=== PATIENT | male | born 1955 | race Caucasian/White ===

== ENCOUNTER 2018-01-08 10:36 | Emergency (ER) | payer OTHER ==
[~2018-01-08] VITALS: Ht 177.8 cm; Wt 81.6 kg
[2018-01-08 10:44] VITALS: BP 155/89
[2018-01-08] MEDS ORDERED: DIPHTH,PERTUSS(ACELL),TET TOX 0.5 ML DISP.SYRIN. VAX IM ONE (10:45)
[2018-01-08] MEDS ORDERED: IBUPROFEN 400 MG TABLET. PO ONE (11:00)
[2018-01-08] MEDS ORDERED: LIDOCAINE 1% Multi-Dose 20 ML VIAL. IJ ONE (11:00)
--- NOTE | 2018-01-08 11:21 | RAD ---
History: Laceration, injury today. Comparison: None. Findings: AP and lateral views of the right tibia and fibula, 4 images. Examination is not optimal to evaluate knee or ankle joints. No acute osseous abnormality is identified. No radiopaque foreign body is seen. Soft tissue defect is seen involving the anterior proximal lower leg, compatible with provided history of laceration. Ossific densities are seen adjacent to lateral malleolus, could be old avulsion fractures or accessory ossicles. Impression: 1. No acute osseous abnormality identified. 2. Laceration of anterior proximal lower leg. Electronically signed by: Goran Landeros MD (01/08/2018 11:18 AM) [place] [id number]
[2018-01-08] MEDS ORDERED: IBUP800T19 PO ×2 (11:39→11:40)
--- NOTE | 2018-01-08 11:40 | PHYS DOC ---
Past History Past Medical History: No Pertinent History Past Surgical History: No Surgical History Alcohol Use: None Drug Use: None Adult General Chief Complaint Chief Complaint: LACERATION/AVULSION HPI HPI Patient is a 62 year old male who presents with complaining of laceration of right lower extremity. Patient states he was at work and had a fall and injured right lower extremity with a laceration. Patient denies other injuries and focal neuro deficit. Patient is up-to-date with his tetanus immunization. Review of Systems Review of Systems Constitutional: Denies fever or chills [] Eyes: Denies change in visual acuity, redness, or eye pain [] HENT: Denies nasal congestion or sore throat [] Respiratory: Denies cough or shortness of breath [] Cardiovascular: No additional information not addressed in HPI [] GI: Denies abdominal pain, nausea, vomiting, bloody stools or diarrhea [] : Denies dysuria or hematuria [] Musculoskeletal: Denies back pain or joint pain [] Integument: Denies rash or skin lesions [] Neurologic: Denies headache, focal weakness or sensory changes [] Endocrine: Denies polyuria or polydipsia [] All other systems were reviewed and found to be within normal limits, except as documented in this note. Current Medications Current Medications Current Medications Medications (Trade) Dose Ordered Sig/Mallory Start Time Stop Time Status Last Admin Dose Admin Diphtheria/ Tetanus/Acell Pertussis (Boostrix) 0.5 ml ONCE ONCE 01/08/18 10:45 01/08/18 10:50 DC 01/08/18 11:04 0.5 ML Ibuprofen (Motrin) 800 mg 1X ONCE 01/08/18 11:00 01/08/18 11:01 DC 01/08/18 11:03 800 MG Lidocaine HCl 20 ml 1X ONCE 01/08/18 11:00 01/08/18 11:01 DC 01/08/18 11:03 20 ML Allergies Allergies Allergies Coded Allergies Type Severity Reaction Last Updated Verified No Known Drug Allergies 01/08/18 No Physical Exam Physical Exam Constitutional: Well developed, well nourished, mild distress, non-toxic appearance. [] HENT: Normocephalic, atraumatic. Eyes: PERRLA, EOMI, conjunctiva normal, no discharge. [] Neck: Normal range of motion, no tenderness, supple, no stridor. [] Cardiovascular:Heart rate regular rhythm, no murmur [] Lungs & Thorax: Bilateral breath sounds clear to auscultation [] [] Skin: Warm, dry, no erythema, no rash. [] Back: No tenderness, no CVA tenderness. [] Extremities: 4 cm irregular laceration on anterior side of proximal right domínguez with mild tenderness, no cyanosis, no clubbing, ROM intact, no edema. [] Neurologic: Alert and oriented X 3, normal motor function, normal sensory function, no focal deficits noted. [] Psychologic: Affect normal, judgement normal, mood normal. [] Current Patient Data Vital Signs Vital Signs Date Time Temp Pulse Resp B/P (MAP) Pulse Ox O2 Delivery O2 Flow Rate FiO2 01/08/18 10:44 98.0 56 18 100 Room Air EKG EKG [] Radiology/Procedures Radiology/Procedures [address] [address] IMAGING REPORT Signed PATIENT: ELSY MCKAY ACCOUNT: [id number] : 1955 LOCATION: ER AGE: 62 SEX: M EXAM STATUS: REG ER ORD. PHYSICIAN: ARAVIND PRITCHARD MD REASON: injury PROCEDURE: TIBIA FIBULA RIGHT History: Laceration, injury today. Comparison: None. Findings: AP and lateral views of the right tibia and fibula, 4 images. Examination is not optimal to evaluate knee or ankle joints. No acute osseous abnormality is identified. No radiopaque foreign body is seen. Soft tissue defect is seen involving the anterior proximal lower leg, compatible with provided history of laceration. Ossific densities are seen adjacent to lateral malleolus, could be old avulsion fractures or accessory ossicles. Impression: 1. No acute osseous abnormality identified. 2. Laceration of anterior proximal lower leg. Electronically signed by: Elsy Bernstein MD (01/08/2018 11:18 AM) [place] [id number] DICTATED AND SIGNED BY: ELSY BERNSTEIN MD DATE: 01/08/18 [id number] CC: ARAVIND PRITCHARD MD; PCP,NO ~ Course & Med Decision Making Course & Med Decision Making Pertinent Imaging studies reviewed. (See chart for details) discharge: I've spoken with the patient and/or caregivers. I've explained the patient's condition, diagnosis and treatment plan based on information available to me at this time. I've answered the patient's and/or caregivers questions and addressed any concerns. The patient and/or caregivers have a good understanding the patient's diagnosis, condition and treatment plan as can be expected at this point. Vital signs have been stabilized. The patient's condition is stable for discharge from the emergency department. The patient will pursue further outpatient evaluation with her primary care provider or other designated consulting physician as outlined in the discharge instructions. Patient and/or caregivers are agreeable to this plan of care and follow-up instructions have been explained in detail. The patient and/or caregivers have received these instructions in written format and expressed understanding of these discharge instructions. The patient and her caregivers are aware that if any significant change in condition or worsening of symptoms should prompt him to immediately return to this of the closest emergency department. If an emergent department is not readily available I would encourage him to call 911. Dragon Disclaimer Dragon Disclaimer This electronic medical record was generated, in whole or in part, using a voice recognition dictation system. Laceration Repair Lac Repair Indication: Right domínguez laceration Procedure: The patient was placed in the appropriate position and anesthesia around the right domínguez laceration was given with 1% lidocaine.. The area was then irrigated extensive normal saline. The laceration was repaired with 5 sutures of 3-0 Ethilon.The wound area was then dressed with nonadhesive dressing and Coban Total repaired wound length: 4 cm Other Items: None The patient tolerated the procedure well. Complications: None. Departure Departure: Impression: Primary Impression: Laceration of right lower leg Additional Impressions: Contusion of right elbow Fall Disposition: HOME, SELF-CARE (at 1140) Condition: IMPROVED Referrals: PCP,NO (PCP) Patient Instructions: Contusion, Laceration Care, Adult, Sutured Wound Care Additional Instructions: Drink plenty of liquids Follow-up with your primary care physician in 3-5 days Return to ER if not getting better Apply ice on the affected area Follow-up with your primary care physician or emergency room in 10 days for the moving the sutures Scripts Ibuprofen (IBUPROFEN) 800 Mg Tablet 1 TAB PO TID for pain, #30 TAB Prov: ARAVIND PRITCHARD MD 01/08/18 Problem Qualifiers ARAVIND PRITCHARD MD Jan 08, 2018 11:40
== END 2018-01-08 11:55 | disposition home or self-care (01) ==
LOC: ER 10:36
DX: S81.811A Laceration without foreign body, right lower leg, initial encounter (principal); S50.01XA Contusion of right elbow, initial encounter; W18.30XA Fall on same level, unspecified, initial encounter; Y93.89 Activity, other specified; Y92.89 Other specified places as the place of occurrence of the external cause; Y99.0 Civilian activity done for income or pay
CPT/HCPCS: 12002; 73590; 90471; 90715; 99284-25